=== PATIENT | male | born 1940 | race American Indian/Alaskan Native ===

== ENCOUNTER 2022-01-13 06:06 | Day surgery (SDC) | payer MEDICARE ==
[~2022-01-13 06:06] MED LIST: ACETAMINOPHEN 325 MG TAB PO SCH; LACTATED RINGERS 1,000 ML IV SCH; MIDAZOLAM 2 MG/2 ML INJ IV NR; ceFAZolin/STERILE WATER 2 GM/20 ML SYRINGE IV SCH; fentaNYL 100 MCG/2 ML INJ IV PRN
[2022-01-13] MEDS ORDERED: BACTERIOSTATIC SODIUM CHLORIDE 0.9% 30 ML VIAL INFILTRATI ONE (06:50)
[2022-01-13] MEDS ORDERED: propofoL 200 MG/20 ML VIAL IV ONE (07:22)
[2022-01-13] MEDS ORDERED: LIDOCAINE MPF (2%) 20 MG/1 ML VIAL 5 ML ONE (07:22)
[2022-01-13] MEDS ORDERED: LIDOCAINE (1%) 10 MG/1 ML VIAL 20 ML MDV ONE (07:30)
[2022-01-13] MEDS ORDERED: dexAMETHasone 4 MG/ML VIAL ONE (07:30)
[2022-01-13] MEDS ORDERED: BUPIVACAINE/PF (0.25%) 2.5 MG/ML 30 ML VIAL INFILTRATI ONE (07:30)
--- NOTE | 2022-01-13 07:38 | Anesthesia Consultation ---
Anesthesia Consult and Med Hx Date of service: 01/13/22 - Airway Anesthetic Teeth Evaluation: Good ROM Head & Neck: Adequate Mental/Hyoid Distance: Adequate Mallampati Class: Class II Intubation Access Assessment: Probably Good - Pre-Operative Health Status ASA Pre-Surgery Classification: ASA2 Proposed Anesthetic Plan: General Nerve Block: IS - Pulmonary Hx Smoking: Yes (former) - Cardiovascular System Hx Hypertension: Yes - Other Systems Hx Alcohol Use: Yes (1 GLASS WINE PER DAY) Hx Cancer: Yes (prostate (1999) s/p radiation)
--- NOTE | 2022-01-13 07:39 | Anesthesia Day of Surgery ---
Anesthesia Day of Surgery - Day of Surgery Patient Examined: Yes Patient H&P Reviewed: Yes Patient is NPO: Yes
[2022-01-13] MEDS ORDERED: fentaNYL 100 MCG/2 ML INJ IV PRN (08:02)
--- NOTE | 2022-01-13 08:04 | Anesthesia Consultation ---
Anesthesia Consult and Med Hx Date of service: 01/13/22 - Airway Anesthetic Teeth Evaluation: Good ROM Head & Neck: Adequate Mental/Hyoid Distance: Adequate Mallampati Class: Class II Intubation Access Assessment: Probably Good - Pre-Operative Health Status ASA Pre-Surgery Classification: ASA2 Proposed Anesthetic Plan: General Nerve Block: IS - Pulmonary Hx Smoking: Yes (former smoker remote hx) Hx Respiratory Symptoms: No - Cardiovascular System Hx Hypertension: Yes Hx Heart Attack/AMI: No - Central Nervous System CVA: No - Endocrine Hx Renal Disease: No Hx Liver Disease: No Hx Insulin Dependent Diabetes: No Hx Non-Insulin Dependent Diabetes: No Hx Thyroid Disease: No - Other Systems Hx Cancer: Yes (prostate (1999) s/p radiation)
[2022-01-13] MEDS ORDERED: ONDANSETRON 4 MG/2 ML INJ IV PRN (08:30)
[2022-01-13] MEDS ORDERED: HYDROcodone/ACETAMINOPHEN 5-325 MG TAB PO PRN (08:30)
[2022-01-13] MEDS ORDERED: EPINEPHrine/PF 1 MG/1 ML INJ ONE ×2 (09:03→09:06)
[2022-01-13] MEDS ORDERED: ROCURONIUM 50 MG/5 ML INJ IV ONE (09:57)
[2022-01-13] MEDS ORDERED: ONDANSETRON 4 MG/2 ML INJ ONE (09:57)
[2022-01-13] MEDS ORDERED: dexAMETHasone 20 MG/5 ML VIAL ONE (09:57)
[2022-01-13] MEDS ORDERED: NEOSTIGMINE 10MG/10 ML INJ MDV ONE (09:57)
[2022-01-13] MEDS ORDERED: PHENYLEPHRINE/NS 1,000 MCG/10 ML SYRINGE (OR USE) IV ONE (09:57)
[2022-01-13] MEDS ORDERED: GLYCOPYRROLATE 0.4 MG/2 ML INJ ONE ×2 (09:57→10:27)
[2022-01-13] MEDS ORDERED: LACTATED RINGERS 1,000 ML ONE (09:57)
[2022-01-13] MEDS ORDERED: EPINEPHrine/PF 1 MG/1 ML INJ IV ONE (10:04)
[2022-01-13] MEDS ORDERED: SODIUM CHLORIDE 0.9% IRRIG SOLN 2000 ML IR ONE (11:19)
--- NOTE | 2022-01-13 11:33 | Discharge Summary ---
Short Stay Discharge Plan Activity: no restrictions Weight Bearing Status: Weight Bear as Tolerated Diet: regular Wound: other (Remove dressing in 2 days and then may cover incisions with bandaids; May shower in 2 days) Durable Medical Equipment Needed Upon Discharge: other (Keep arm in sling at all times except shower) Follow up with: PRIMARY CAREMD [Primary Care Provider] - 7 Days SUZANNE MARCELINO II, MD [Staff Physician] - 14 Days Forms: Out[facility]
--- NOTE | 2022-01-13 12:39 | Operative Report ---
DATE OF SURGERY: 01/13/2022 PREOPERATIVE DIAGNOSIS: Right shoulder rotator cuff tear. POSTOPERATIVE DIAGNOSIS: Right shoulder rotator cuff tear with biceps tendon tear. PROCEDURE PERFORMED: 1. Right shoulder arthroscopic rotator cuff repair. 2. Biceps tenotomy. 3. Subacromial decompression. 4. Extensive debridement. SURGEON: Renny Lopez II, MD ASSESSMENT COUNSELOR: None. ANESTHESIA: General with interscalene block. COMPLICATIONS: None. DRAINS: None. SPECIMENS: None. TOURNIQUET TIME: Not applicable. PREOPERATIVE MEDICATIONS: Ancef 2 grams administered 30 minutes prior to skin incision. Examination under anesthesia reveals full range of motion, no instability. OPERATIVE FINDINGS: Include a large full-thickness retracted tear of the supra and infraspinatus. There was also a high-grade partial-thickness tear of the biceps tendon and significant subacromial bursal inflammation. INDICATIONS: The patient is an 81-year-old male who sustained a fall and had a tear of the rotator cuff, evaluation and workup suggestive of a massive tear that would require surgical management. We recommended surgery for the patient. Risks, benefits and limitations of surgery were discussed with the patient. TECHNIQUE: In the preoperative holding area, site was marked with surgical marker pen. Extremity was prepped and draped in sterile fashion in a beach chair position. Standard posterior portal was placed and diagnostic arthroscopy was performed. Articular cartilage was normal. Anterior, posterior and superior labrum appeared to be intact. The biceps tendon was noted to have a high-grade partial-thickness tear, estimated to be about 50% thickness. There was also noted to be some full-thickness tearing and retraction of the supra and infraspinatus. The scope was placed into the subacromial space where a bursectomy and extensive debridement of the subacromial bursa was performed in order to evaluate the tear pattern of the rotator cuff. There was noted to be a U-shaped tear of the rotator cuff with retraction back to the level of the glenoid rim. Decision was made for margin convergence repair. Two anchors were placed in the anterior and posterior aspect of the footprint after abrading the greater tuberosity down to a bleeding bed of bone. Mattress sutures were passed through the rotator cuff, both anteriorly and posteriorly and then multiple margin convergence sutures were placed with #2 Ribbon and #2 Hi-Fi suture from [employer]. The suture anchors that were inserted were 5.5 mm PEEK CrossFT anchors from [employer], a total of 2 anchors were placed. Sutures were then sequentially tied and this resulted in repair of the rotator cuff. The arthroscope was removed. Incisions were closed with 3-0 nylon. Sterile dressing was applied. The patient was awakened and taken to recovery room in stable condition. POSTOPERATIVE PLAN: The patient will be in a sling for 6 weeks. We will delay physical therapy for 6 weeks' time postop. We will see him back for followup visit in 2 weeks. TID: [id number] RECEIPT: [id number] CHICO/FUAD/GRABIEL
[2022-01-13 12:49] VITALS: BP 120/80
== END 2022-01-13 12:30 | disposition home or self-care (01) ==
LOC: OR 06:06
PROVIDERS: ATTEND Orthopaedic Surgery Sports Medicine
DX: M75.121 Complete rotator cuff tear or rupture of right shoulder, not specified as traumatic (principal); H40.9 Unspecified glaucoma; I10 Essential (primary) hypertension; Z85.46 Personal history of malignant neoplasm of prostate; Z87.891 Personal history of nicotine dependence; Z79.899 Other long term (current) drug therapy; Z98.49 Cataract extraction status, unspecified eye; Z72.89 Other problems related to lifestyle
CPT/HCPCS: 29826; 29827; 64415; C1713; J0171; J0690; J1100; J1815; J2250; J2370; J2405; J2704; J2710; J3010; J3490; J7120